=== PATIENT | female | born 1960 | race Caucasian/White ===

== ENCOUNTER 2019-01-13 06:55 | Observation (INO) | payer OTHER ==
--- OUTSIDE RECORDS SUMMARY | 2019-01-13 06:57 | XMS REPORT ---
:1960 Author Organization eClinicalWorks Care Team Providers Name Role Phone DumontMac Provider Role Unavailable Allergies No Known Allergies Problems Problem Type Condition Code Onset Dates Condition Status Problem HTN, goal below 140/90 I10 Active Problem Abnormal mammogram R92.8 Active Problem Family history of diabetes mellitus Z83.3 Active Problem Hyperlipidemia E78.5 Active Problem Primary osteoarthritis of one knee M17.10 Active Problem Body mass index (BMI) of 30.0 to E66.9 Active 39.9 Problem Anxiety disorder F41.9 Active Problem Pre-diabetes R73.09 Active Medications Medication Code Code Instructions Start End Status Dosage System Date Date Zovirax [facility] 45777526614 5 % Externally December 03, 1 application Five times a day 2019 to affected area Results No Known Results Summary Purpose eClinicalWorks Submission
--- OUTSIDE RECORDS SUMMARY | 2019-01-13 06:57 | XMS REPORT ---
:1960 Author Organization eClinicalWorks Care Team Providers Name Role Phone Tim Mac Provider Role Unavailable Allergies No Known Allergies Problems Problem Type Condition Code Onset Dates Condition Status Assessment Hyperlipidemia E78.5 Active Problem HTN, goal below 140/90 I10 Active Assessment HTN, goal below 140/90 I10 Active Problem Abnormal mammogram R92.8 Active Problem Family history of diabetes mellitus Z83.3 Active Problem Hyperlipidemia E78.5 Active Problem Primary osteoarthritis of one knee M17.10 Active Problem Body mass index (BMI) of 30.0 to E66.9 Active 39.9 Problem Anxiety disorder F41.9 Active Problem Pre-diabetes R73.09 Active Assessment Abnormal mammogram R92.8 Active Assessment Primary osteoarthritis of one knee M17.10 Active Assessment Anxiety disorder F41.9 Active Assessment Pre-diabetes R73.09 Active Medications Medication Code Code Instructions Start End Date Status Dosage System Date Losartan [facility] 59443297968 50-12.5 MG Active 1 tablet Potassium-HCTZ Orally Once a day Aspirin [facility] 91091656975 81 MG Orally Active 1 tablet Once a day Results No Known Results Summary Purpose eClinicalWorks Submission
--- OUTSIDE RECORDS SUMMARY | 2019-01-13 06:57 | XMS REPORT ---
[...] Start End Status Dosage System Date Date Valtrex [facility] 89274185830 1 GM Orally December 03, December 04, Active 2 tablet twice a day 2018 2018 Zovirax [facility] 31626626235 5 % Externally December 03, Inactive 1 application Five times a 2019 to affected day area Results No Known Results Summary Purpose eClinicalWorks Submission
--- OUTSIDE RECORDS SUMMARY | 2019-01-13 06:57 | XMS REPORT ---
:1960 Author Organization eClinicalWorks Care Team Providers Name Role Phone Mac Dumont Provider Role Unavailable Allergies, Adverse Reactions, Alerts Substance Reaction Event Type N.K.D.A. Info Not Available Non Drug Allergy Problems Problem Type Condition Code Onset Dates Condition Status Assessment HTN, goal below 140/90 I10 Active Problem HTN, goal below 140/90 I10 Active Problem Abnormal mammogram R92.8 Active Problem Family history of diabetes mellitus Z83.3 Active Problem Hyperlipidemia E78.5 Active Problem Primary osteoarthritis of one knee M17.10 Active Problem Body mass index (BMI) of 30.0 to E66.9 Active 39.9 Problem Anxiety disorder F41.9 Active Problem Pre-diabetes R73.09 Active Assessment Primary osteoarthritis of one knee M17.10 Active Assessment Anxiety disorder F41.9 Active Assessment Pre-diabetes R73.09 Active Assessment Abnormal mammogram R92.8 Active Assessment Hyperlipidemia E78.5 Active Medications Medication Code Code Instructions Start End Date Status Dosage System Date Losartan [facility] 99745636862 50-12.5 MG Active 1 tablet Potassium-HCTZ Orally Once a day Aspirin [facility] 77494175771 81 MG Orally Active 1 tablet Once a day Losartan [facility] 40682376137 50-12.5 MG Active 1 tablet Potassium-HCTZ Orally Once a day Results No Known Results Summary Purpose eClinicalWorks Submission
[2019-01-13 07:31] LABS: Protime INR 0.88
[2019-01-13] MEDS ORDERED: ASPIRIN 81 MG CHEWABLE TABLET ONE (07:31)
[2019-01-13 07:35] LABS: Absolute Lymphocytes (CBC) 1.9 K/uL (0.7-4.9); Eosinophils % 2.1 % (0-4.4); Lymphocytes % 27.6 % (15.3-44.8); MPV 8.5 fL (7.6-11.3); Monocytes % 7.3 % (3.3-12.3); RBC Red Blood Cell Count 4.73 M/uL (3.86-4.86)
[2019-01-13] MEDS ORDERED: ONDANSETRON 4 MG/2 ML VIAL ONE (07:44)
[2019-01-13] MEDS ORDERED: FAMOTIDINE 20 MG/2 ML VIAL IV ONE (07:44)
[2019-01-13] MEDS ORDERED: NA CHLORIDE 0.9% 500 ML ONE (07:44)
[2019-01-13] MEDS ORDERED: NITROGLYCERIN 0.4 MG/TAB SL ONE (07:44)
--- NOTE | 2019-01-13 08:16 | RAD REPORT ---
EXAM DESCRIPTION: RAD - Chest Single View - 01/13/2019 8:03 am CLINICAL HISTORY: Chest pain COMPARISON: None. TECHNIQUE: AP portable chest image was obtained 0758 hours . FINDINGS: Lungs are clear. Heart and vasculature are normal. No measurable pleural effusion and no p neumothorax. No acute bony abnormality seen. No acute aortic findings suspected. IMPRESSION: No acute cardiopulmonary process.
[2019-01-13] MEDS ORDERED: METOPROLOL TAR 25 MG TAB ONE (08:25)
[2019-01-13 08:45] LABS: ALT/SGPT 17 U/L (12-78); AST/SGOT 11 U/L (15-37); Albumin 3.6 g/dL (3.4-5.0); Alkaline Phosphatase 68 U/L (45-117); BUN Blood Urea Nitrogen 17 mg/dL (7-18); Bicarbonate 29 mmol/L (21-32); Bilirubin Direct < 0.1 mg/dL (0-0.2); Bilirubin Total 0.3 mg/dL (0.2-1.0); Glucose Level 109 mg/dL (74-106); Magnesium 2.3 mg/dL (1.8-2.4); NT PRO-BNP 36 pg/mL (<125); Potassium 4.3 mmol/L (3.5-5.1); Protein, Total 7.1 g/dL (6.4-8.2); Sodium Level 142 mmol/L (136-145); Troponin (Emerg Dept Use Only) < 0.02 ng/mL (0.0-0.045)
--- NOTE | 2019-01-13 10:08 | ER ---
Nurse's Notes [facility] Name: Portia Walton Age: 58 yrs Sex: Female : 1960 Arrival Date: 01/13/2019 Time: 06:58 Bed 20 Private MD: Mac Dumont Diagnosis: Angina pectoris, unspecified Presentation: 01/13 07:11 Presenting complaint: Patient states: I dont know if I am having a heart attack or not, tw2 i have been having some upper back pain and it spread across and its hurts in my jaw on the left side and down my left arm, and i am having some indigestion for a few days now. Transition of care: patient was not received from another setting of care. Onset of symptoms was January 13, 2019. Risk Assessment: Do you want to hurt yourself or someone else? Patient reports no desire to harm self or others. Initial Sepsis Screen: Does the patient meet any 2 criteria? No. Patient's initial sepsis screen is negative. Does the patient have a suspected source of infection? No. Patient's initial sepsis screen is negative. Care prior to arrival: None. 07:11 Method Of Arrival: Wheelchair tw2 07:11 Acuity: CORIN 2 tw2 Triage Assessment: 07:12 General: Appears in no apparent distress. well groomed, Behavior is calm, cooperative, tw2 appropriate for age. Pain: Complains of pain in back and chest Pain radiates to left arm and jaw. Cardiovascular: Reports indigestion. Historical: - Allergies: 07:10 No Known Allergies; tw2 - Home Meds: 07:10 losartan oral oral [Active]; tw2 - PMHx: 07:10 Hypertension; tw2 - PSHx: 07:10 Knee surgery; tw2 - Immunization history:: Adult Immunizations. - Social history:: Smoking status: . - Ebola Screening: : Patient denies travel to an Ebola-affected area in the 21 days before illness onset. Screenin:04 Abuse screen: Denies threats or abuse. Nutritional screening: No deficits noted. tw2 Tuberculosis screening: No symptoms or risk factors identified. Fall Risk None identified. Assessment: 07:14 Pain: Pain began 2-3 days ago. tw2 07:25 General: Appears in no apparent distress. obese, well groomed, Behavior is calm, tw2 cooperative, appropriate for age. Pain: Complains of pain in back. Neuro: Level of Consciousness is awake, alert, obeys commands, Oriented to person, place, time, situation. Cardiovascular: Heart tones S1 S2 Patient's skin is warm and dry. Respiratory: Airway is patent Respiratory effort is even, unlabored, Respiratory pattern is regular, symmetrical, Breath sounds are clear bilaterally. GI: Abdomen is round non-distended, obese, Bowel sounds present X 4 quads. Reports indigestion. : No signs and/or symptoms were reported regarding the genitourinary system. EENT: No signs and/or symptoms were reported regarding the EENT system. Derm: No signs and/or symptoms reported regarding the dermatologic system. Musculoskeletal: Range of motion: intact in all extremities, Reports pain in left arm. 08:15 Reassessment: Patient appears in no apparent distress at this time. Patient and/or tw2 family updated on plan of care and expected duration. Pain level reassessed. Patient is alert, oriented x 3, equal unlabored respirations, skin warm/dry/pink. Patient states feeling better. Patient states symptoms have improved. 09:03 Reassessment: Patient appears in no apparent distress at this time. Patient and/or tw2 family updated on plan of care and expected duration. Pain level reassessed. Patient is alert, oriented x 3, equal unlabored respirations, skin warm/dry/pink. 09:53 Reassessment: Dr. Dumont, Hospitalist at bedside at this time. tw2 10:20 Reassessment: Patient appears in no apparent distress at this time. Patient and/or tw2 family updated on plan of care and expected duration. Pain level reassessed. Patient is alert, oriented x 3, equal unlabored respirations, skin warm/dry/pink. Vital Signs: 07:14 BP 188 / 89; Pulse 72; Resp 19; Temp 97.9(O); Pulse Ox 100% on R/A; Weight 95.25 kg tw2 (R); Height 5 ft. 5 in. (165.10 cm); Pain 3/10; 08:15 BP 181 / 86; Pulse 60; Resp 17; Pulse Ox 100% on R/A; tw2 09:02 BP 163 / 91; Pulse 63; Resp 14; Pulse Ox 100% on R/A; tw2 10:19 BP 158 / 84 Supine; Pulse 54; Resp 17; Pulse Ox 100% on R/A; tw2 07:14 Body Mass Index 34.95 (95.25 kg, 165.10 cm) tw2 ED Course: 06:58 Patient arrived in ED. am2 06:58 Mac Dumont DO is Private Physician. am2 07:04 Placed in gown. Bed in low position. school lunch monitor on. Pulse ox on. NIBP on. tw2 07:05 Arm band placed on. tw2 07:08 Miki Sunshine PA is PHCP. cp 07:08 Rolando Canales MD is Attending Physician. cp 07:12 Triage completed. tw2 07:15 Patient maintains SpO2 saturation greater than 95% on room air. tw2 07:17 EKG done, by ED staff, reviewed by Miki LANDA. mh5 07:18 Warm blanket given. mh5 07:20 Initial lab(s) drawn, by mi, sent to lab. Inserted saline lock: 20 gauge in left hand, ls4 using aseptic technique. Blood collected. 07:26 Fiordaliza Siddiqi, RN is Primary Nurse. tw2 07:42 Jitendra Hays MD is Attending Physician. cp 08:01 X-ray completed. Portable x-ray completed in exam room. Patient tolerated procedure jb2 well. 08:06 XRAY Chest (1 view) In Process Unspecified. EDMS 10:07 Mac Dumont DO is Hospitalizing Provider. cp 11:01 Awaiting: unsuccessful attempt to call report to floor nurse at this time. tw2 11:20 No provider procedures requiring assistance completed. Patient admitted, IV remains in tw2 place. Administered Medications: 07:26 Drug: Aspirin Chewable Tablet 324 mg Route: PO; tw2 07:38 Follow up: Response: No adverse reaction tw2 07:32 Drug: Nitroglycerin 0.4 mg Route: Sublingual; tw2 07:50 Follow up: Response: No adverse reaction; Marked relief of symptoms; Pain is decreased tw2 07:34 Drug: Pepcid 20 mg Route: IVP; Site: left hand; tw2 08:56 Follow up: Response: No adverse reaction tw2 07:37 Drug: NS 0.9% 500 ml Route: IV; Rate: bolus; Site: left hand; tw2 08:55 Follow up: Response: No adverse reaction; IV Status: Completed infusion; IV Intake: tw2 500ml 07:38 Drug: Zofran 4 mg Route: IVP; Site: left hand; tw2 08:55 Follow up: Response: No adverse reaction tw2 08:14 Drug: Metoprolol 25 mg Route: PO; tw2 10:41 Follow up: Response: No adverse reaction; Blood pressure is lowered tw2 Intake: 08:55 IV: 500ml; Total: 500ml. tw2 Outcome: 10:08 Decision to Hospitalize by Provider. cp 11:21 Admitted to Med/surg accompanied by tech, via wheelchair, room 427, with chart, Report tw2 called to SIMRAN Campos 11:21 Condition: stable 11:21 Instructed on the need for admit. 11:30 Patient left the ED. tw2 Signatures: Dispatcher [employer] Mario Lucas2 Miki Sunshine PA PA cp Wise, Tara RN RN tw2 Venessa Robison [facility] Sanaz Monzon 2 Shamika Chun, RN RN ls4
--- NOTE | 2019-01-13 10:09 | EDPHYS ---
Physician Documentation [facility] Name: Portia Walton Age: 58 yrs Sex: Female : 1960 Arrival Date: 01/13/2019 Time: 06:58 Bed 20 Private MD: Tim [facility] ED Physician Jitendra Hays HPI: 01/13 07:15 This 58 yrs old Female presents to ER via Wheelchair with complaints of Chest cp Tightness, Back Pain, indigestion. 07:15 The patient or guardian reports chest pain that is located primarily in the anterior cp chest wall, left. 07:15 Onset: this morning. The pain radiates to the left arm, left neck, left jaw. cp 07:15 The chest pain is described as tightness. cp 07:15 Associated signs and symptoms: Pertinent negatives: abdominal pain, cough, diaphoresis, cp lower extremity pain, lower extremity swelling, shortness of breath, syncope, vomiting. Duration: The patient or guardian reports a single episode, that is still ongoing. Severity of pain: in the emergency department the pain is unchanged despite home interventions. Historical: - Allergies: 07:10 No Known Allergies; tw2 - Home Meds: 07:10 losartan oral oral [Active]; tw2 - PMHx: 07:10 Hypertension; tw2 - PSHx: 07:10 Knee surgery; tw2 - Immunization history:: Adult Immunizations. - Social history:: Smoking status: . - Ebola Screening: : Patient denies travel to an Ebola-affected area in the 21 days before illness onset. ROS: 07:20 Constitutional: Negative for body aches, chills, fever, poor PO intake. cp 07:20 Eyes: Negative for injury, pain, redness, and discharge. cp 07:20 ENT: Negative for drainage from ear(s), ear pain, sore throat, difficulty swallowing, difficulty handling secretions. 07:20 Cardiovascular: Positive for chest pain, Negative for edema, palpitations. 07:20 Respiratory: Negative for cough, shortness of breath, wheezing. 07:20 Abdomen/GI: Negative for abdominal pain, vomiting, diarrhea, constipation. 07:20 Back: Positive for pain at rest. 07:20 : Negative for urinary symptoms. 07:20 Neuro: Negative for altered mental status, headache, weakness. 07:20 All other systems are negative. Exam: 07:12 ECG was reviewed by the Attending Physician. cp 07:22 Constitutional: The patient appears in no acute distress, alert, awake, cp non-diaphoretic, non-toxic, well developed, well nourished. 07:22 Head/Face: Normocephalic, atraumatic. Eyes: Pupils equal round and reactive to light, cp extra-ocular motions intact. Lids and lashes normal. Conjunctiva and sclera are non-icteric and not injected. Cornea within normal limits. Periorbital areas with no swelling, redness, or edema. ENT: Nares patent. No nasal discharge, no septal abnormalities noted. Tympanic membranes are normal and external auditory canals are clear. Oropharynx with no redness, swelling, or masses, exudates, or evidence of obstruction, uvula midline. Mucous membranes moist. 07:22 Neck: ROM/movement: is normal, is supple, without pain, no range of motions limitations, no nuchal rigidity, Lymph nodes: no appreciated lymphadenopathy. 07:22 Chest/axilla: Inspection: normal, Palpation: is normal, no crepitus, no tenderness. 07:22 Cardiovascular: Rate: normal, Rhythm: regular, Heart sounds: murmur, not appreciated, rub, not appreciated, gallop, not appreciated, Edema: is not appreciated, JVD: is not appreciated. 07:22 Respiratory: the patient does not display signs of respiratory distress, Respirations: normal, no use of accessory muscles, no retractions, no splinting, no tachypnea, labored breathing, is not present, Breath sounds: are clear throughout, no decreased breath sounds. 07:22 Abdomen/GI: Inspection: abdomen appears normal, Bowel sounds: active, all quadrants, Palpation: abdomen is soft and non-tender, in all quadrants, rebound tenderness, is not appreciated, involuntary guarding, is not appreciated. 07:22 Back: pain, is absent, ROM is normal. 07:22 Skin: no rash present. 07:22 Neuro: Orientation: to person, place \T\ time. Mentation: is normal, Cerebellar function: is grossly normal, Motor: moves all fours, strength is normal, Sensation: no obvious gross deficits. Vital Signs: 07:14 BP 188 / 89; Pulse 72; Resp 19; Temp 97.9(O); Pulse Ox 100% on R/A; Weight 95.25 kg tw2 (R); Height 5 ft. 5 in. (165.10 cm); Pain 3/10; 08:15 BP 181 / 86; Pulse 60; Resp 17; Pulse Ox 100% on R/A; tw2 09:02 BP 163 / 91; Pulse 63; Resp 14; Pulse Ox 100% on R/A; tw2 10:19 BP 158 / 84 Supine; Pulse 54; Resp 17; Pulse Ox 100% on R/A; tw2 07:14 Body Mass Index 34.95 (95.25 kg, 165.10 cm) tw2 MDM: 07:11 Patient medically screened. cp 09:15 The patient was given aspirin in the Emergency Department. cp 09:15 Test interpretation: by ED physician or midlevel provider: ECG, plain radiologic cp studies. 09:17 Data reviewed: vital signs, nurses notes, lab test result(s), EKG, radiologic studies, cp plain films, I have discussed the patient's presentation/case with the attending Emergency Department Physician;. Response to treatment: the patient's symptoms have resolved after treatment, chest pain relieved with ASA and sublingual nitro. 09:34 Physician consultation: Mac Tmi was called at 09:20, was contacted at 09:25, regarding admission, to the telemetry unit. patient's condition, and will see patient in ED, shortly. 09:41 HEART Score: History: Highly Suspicious (2), Age: > 45 and < 65 years (1), Risk kdr Factors: 1 or 2 risk factors (1). 01/13 07:08 Order name: Basic Metabolic Panel tw2 01/13 07:08 Order name: CBC with Diff tw01/13 07:08 Order name: LFT's 01/13 07:08 Order name: Magnesium; Complete Time: 09:14 tw2 01/13 07:08 Order name: NT PRO-BNP; Complete Time: 09:14 tw2 01/13 07:08 Order name: PT-INR; Complete Time: 08:26 tw2 01/13 07:08 Order name: Troponin (emerg Dept Use Only); Complete Time: 09:14 tw2 01/13 09:13 Interpretation: TROPED < 0.02; Reviewed. cp 01/13 07:11 Order name: Basic Metabolic Panel; Complete Time: 09:14 EDMS 01/13 09:12 Interpretation: Normal except: CL 108; GLUC 109; GFR 73. cp 01/13 07:11 Order name: CBC with Automated Diff; Complete Time: 08:26 EDMS 01/13 07:11 Order name: Liver (Hepatic) Function; Complete Time: 09:14 EDMS 01/13 07:11 Order name: Lipase; Complete Time: 09:14 cp 01/13 10:10 Order name: Troponin I EDIA 01/13 10:10 Order name: Troponin I EDMS 01/13 10:10 Order name: Troponin I EDMS 01/13 07:08 Order name: XRAY Chest (1 view); Complete Time: 08:26 tw2 01/13 07:08 Order name: EKG; Complete Time: 07:12 tw2 01/13 07:08 Order name: Cardiac monitoring; Complete Time: 07:15 tw2 01/13 07:08 Order name: EKG - Nurse/Tech; Complete Time: 07:15 tw2 01/13 07:08 Order name: IV Saline Lock; Complete Time: 07:15 tw2 01/13 07:08 Order name: Labs collected and sent; Complete Time: 07:15 tw2 01/13 07:08 Order name: O2 Per Protocol; Complete Time: 07:15 tw2 01/13 10:10 Order name: Heart Healthy EDIA 01/13 10:10 Order name: Echo with Doppler EDIA 01/13 10:11 Order name: Troponin I EDIA 01/13 07:08 Order name: O2 Sat Monitoring; Complete Time: 07:16 tw2 01/13 07:38 Order name: Labs - recollect needed; Complete Time: 08:16 bd EC:12 Rate is 71 beats/min. Rhythm is regular. IN interval is normal. QRS interval is normal. cp QT interval is normal. Interpreted by me. Reviewed by me. Administered Medications: 07:26 Drug: Aspirin Chewable Tablet 324 mg Route: PO; tw2 07:38 Follow up: Response: No adverse reaction tw2 07:32 Drug: Nitroglycerin 0.4 mg Route: Sublingual; tw2 07:50 Follow up: Response: No adverse reaction; Marked relief of symptoms; Pain is decreased tw2 07:34 Drug: Pepcid 20 mg Route: IVP; Site: left hand; tw2 08:56 Follow up: Response: No adverse reaction tw2 07:37 Drug: NS 0.9% 500 ml Route: IV; Rate: bolus; Site: left hand; tw2 08:55 Follow up: Response: No adverse reaction; IV Status: Completed infusion; IV Intake: tw2 500ml 07:38 Drug: Zofran 4 mg Route: IVP; Site: left hand; tw2 08:55 Follow up: Response: No adverse reaction tw2 08:14 Drug: Metoprolol 25 mg Route: PO; tw2 10:41 Follow up: Response: No adverse reaction; Blood pressure is lowered tw2 Disposition: 14:35 Co-signature as Attending Physician, Jitendra Hays MD I agree with the assessment and kdr plan of care. Disposition: 01/13/19 10:08 Hospitalization ordered by Mac Dumont for Observation. Preliminary diagnosis is Angina pectoris, unspecified. - Bed requested for Telemetry/MedSurg (observation). - Status is Observation. tw2 - Condition is Stable. - Problem is new. - Symptoms have improved. UTI on Admission? No Signatures: Dispatcher [employer] EDMS Taty Torres Kevin, MD MD kdr Miki Sunshine PA PA cp Wise, Tara, RN RN tw2 Corrections: (The following items were deleted from the chart) 09:15 09:13 Normal except: TROPED < 0.02. cp cp 10:54 10:08 Hospitalization Ordered by Mac Tim GUTIERREZ for Observation. Preliminary diagnosis bd is Angina pectoris, unspecified. Bed requested for Telemetry/MedSurg (observation). Status is Observation. Condition is Stable. Problem is new. Symptoms have improved. UTI on Admission? No. cp 11:30 10:54 01/13/2019 10:08 Hospitalization Ordered by [facility] Tim GUTIERREZ for Observation. tw2 Preliminary diagnosis is Angina pectoris, unspecified. Bed requested for Telemetry/MedSurg (observation). Status is Observation. Condition is Stable. Problem is new. Symptoms have improved. UTI on Admission? No. bd
--- NOTE | 2019-01-13 11:14 | P.HP ---
Certification for Inpatient Patient admitted to: Observation With expected LOS: <2 Midnights Patient will require the following post-hospital care: None Practitioner: I am a practitioner with admitting privileges, knowledge of patient current condition, hospital course, and medical plan of care. Services: Services provided to patient in accordance with Admission requirements found in Title 42 Section 412.3 of the Code of Federal Regulations Patient History Date of Service: 01/13/19 Primary Care Provider: Dr. Dumont Reason for admission: Shoulder pain History of Present Illness: This is a 58-year-old female with significant past medical history of high blood pressure who presented to the ED complaining of having some shoulder plain this started about Saturday night. Patient stated that she had some shoulder blade pain that was not relieved by any painkillers at home. Patient has noted that this morning however at around 5:00 a.m. she started having heartburn like symptoms. She also noted that the Medrol was getting tight and the she decided to come to the ER. Patient denies having any chills any dyspnea or any chest pain at this time. Patient stated that the symptoms along like heartburn and chest tightness. Patient stated that it was more of a burning feeling rather than pressure-like feeling. Patient however got worried and thus decided to come to the ER. Patient has taken Prilosec in the past about 2 months ago as well for similar symptoms. The patient was given nitro and aspirin in the ER which did resolve her pain. Patient was chest pain free when I saw the patient in the ER Patient was seen and examined in the ER. Initial troponin were negative. EKG was with no acute changes. Patient's heart score was calculated to be 3 to 4+ decision was made to observe the patient in the hospital for repeat troponin. Review of Systems 10-point ROS is otherwise unremarkable Physical Examination - Physical Exam General: Alert, In no apparent distress HEENT: Atraumatic, PERRLA, Mucous membr. moist/pink, EOMI, Sclerae nonicteric Neck: Supple, 2+ carotid pulse no bruit, No LAD, Without JVD or thyroid abnormality Respiratory: Clear to auscultation bilaterally, Normal air movement Cardiovascular: Regular rate/rhythm, Normal S1 S2 Gastrointestinal: Normal bowel sounds, No tenderness Musculoskeletal: No tenderness Integumentary: No rashes Neurological: Normal gait, Normal speech, Normal strength at 5/5 x4 extr, Normal tone, Normal affect Lymphatics: No axilla or inguinal lymphadenopathy - Studies Laboratory Data (last 24 hrs) 01/13/19 08:10: Lipase 97 01/13/19 08:10: Sodium 142, Potassium 4.3, BUN 17, Creatinine 0.80, Glucose 109 H, Magnesium 2.3, Total Bilirubin 0.3, AST 11 L, ALT 17, Alkaline Phosphatase 68 01/13/19 07:18: PT 10.4, INR 0.88 01/13/19 07:18: WBC 6.9, Hgb 13.2, Hct 40.0, Plt Count 382 Assessment and Plan - Problems (Diagnosis) (1) Chest tightness Current Visit: Yes Status: Acute Plan: Chest tightness with radiation to the jaw and back with a heart score of 4 -patient admitted to the hospital to rule out ACS -will repeat troponin times 1 here in the hospital in 8 hr -if the troponin is negative patient and can be discharged home to follow up outpatient with cardiology to have further workup -will monitor patient closely here in the hospital and started on metoprolol 25 mg b.i.d. -patient initial blood pressure was elevated in the ER as she had not taken her home medication today (2) HTN (hypertension) Current Visit: Yes Status: Chronic Plan: Restarted on home medication along with metoprolol Qualifiers: Hypertension type: essential hypertension Qualified Code(s): I10 - Essential (primary) hypertension - Plan Admit the patient for observation to repeat troponin x1 here in the hospital. If the troponin is negative and patient remains chest pain-free patient then can be discharged home to have outpatient follow up with cardiology for further workup. Discharge Plan: Home Plan to discharge in: 24 Hours - Advance Directives Does patient have a Living Will: No Does patient have a Durable POA for Healthcare: No - Code Status/Comfort Care Code Status Assessed: Yes Critical Care: No
[2019-01-13 11:48] VITALS: O2SAT 100
--- NOTE | 2019-01-13 12:11 | EKG ---
Test Date: 2019-01-13 Test Time: 07:12:11 [place]: [facility] MEASUREMENT RESULTS: Intervals: Rate: 71 CA: 172 QRSD: 80 QT: 398 QTc: 432 [place]: P: 30 CA: 172 QRS: 9 T: 55 INTERPRETIVE STATEMENTS: Normal sinus rhythm Septal infarct, age undetermined Abnormal ECG No previous ECG available for comparison Electronically Signed On 01-13-19 12:10:15 CDT by Carlos Hudson
[2019-01-13 12:17] VITALS: TEMP 98.7
--- NOTE | 2019-01-13 13:35 | ECHO ---
HEIGHT: 5 ft 5 in WEIGHT: 213 lb 9.6 oz DATE OF STUDY: 01/13/[address]: Irma Dumont MD 2-DIMENSIONAL: YES M.MODE: YES DOPPLER: YES COLOR FLOW: YES TDS: NO PORTABLE: NO DEFINITY: NO BUBBLE STUDY: NO DIAGNOSIS: CHEST TIGHTNESS CARDIAC HISTORY: CATHERIZATION: NO SURGERY: NO PROSTHETIC VALVE: NO PACEMAKER: NO MEASUREMENTS (cm) DIASTOLIC (NORMALS) SYSTOLIC (NORMALS) IVSd 1.0 (0.6-1.2) LA Diam 3.8 (1.9-4.0) LVEF 71% LVIDd 4.2 (3.5-5.7) LVIDs 2.5 (2.0-3.5) %FS 40% LVPWd 1.1 (0.6-1.2) Ao Diam 2.7 (2.0-3.7) 2 DIMENSIONAL ASSESSMENT: RIGHT ATRIUM: NORMAL LEFT ATRIUM: NORMAL RIGHT VENTRICLE: NORMAL LEFT VENTRICLE: NORMAL TRICUSPID VALVE: NORMAL MITRAL VALVE: NORMAL PULMONIC VALVE: NORMAL AORTIC VALVE: NORMAL PERICARDIAL EFFUSION: NONE AORTIC ROOT: NORMAL LEFT VENTRICULAR WALL MOTION: NORMAL DOPPLER/COLOR FLOW: MILD TRICUSPID REGURGITATION. NORMAL RIGHT VENTRICULAR SYSTOLIC PRESSURE. COMMENTS: NORMAL 2D ECHOCARDIOGRAM. MILD TRICUSPID REGURGITATION. NORMAL RIGHT VENTRICULAR SYSTOLIC PRESSURE. NO EFFUSION. NO WALL MOTION ABNORMALITY. TECHNOLOGIST: Dinah ROSALES
[2019-01-13 14:03] VITALS: BMI 35.4
[2019-01-13 17:03] VITALS: BP 147/79
== END 2019-01-13 15:42 | disposition home or self-care (01) ==
LOC: ER 06:55 → ERHOLD 10:09 → 4TH 11:18
PROVIDERS: ADMIT Family Medicine; ATTEND Family Medicine
DX: R07.89 Other chest pain (principal); I10 Essential (primary) hypertension
CPT/HCPCS: 36415; 71045; 80048; 80076; 83690; 83735; 83880; 84484; 85025; 85610; 93005; 93306; 96361; 96374; 96375; 99285; G0378; J2405

== ENCOUNTER 2019-03-31 09:20 | Inpatient (IN) | payer OTHER ==
[2019-03-31 10:05] LABS: Absolute Lymphocytes (CBC) 1.5 K/uL (0.7-4.9); Basophils % 0.7 % (0-1.3); Hematocrit 17.1 % (36.0-45.0); Lymphocytes % 21.5 % (15.3-44.8); MPV 7.6 fL (7.6-11.3); RBC Red Blood Cell Count 1.97 M/uL (3.86-4.86)
[2019-03-31 10:10] LABS: Protime INR 0.96
--- NOTE | 2019-03-31 10:33 | RAD REPORT ---
EXAM DESCRIPTION: RAD - Chest Single View - 03/31/2019 10:17 am CLINICAL HISTORY: Shortness of breath COMPARISON: December 2018 TECHNIQUE: AP portable chest image was obtained 1005 hours . FINDINGS: Lungs are clear of acute finding. Small granuloma in the upper right lung field. Lung delmis ings match comparison. . Heart and vasculature are normal. No measurable pleural effusion and no pneu mothorax. No acute bony abnormality seen. No acute aortic findings suspected. IMPRESSION: No acute cardiopulmonary process. No significant interval change.
[2019-03-31 10:40] LABS: ALT/SGPT 22 U/L (12-78); AST/SGOT 18 U/L (15-37); Albumin 3.3 g/dL (3.4-5.0); Alkaline Phosphatase 54 U/L (45-117); BUN Blood Urea Nitrogen 16 mg/dL (7-18); Bicarbonate 28 mmol/L (21-32); Bilirubin Direct < 0.1 mg/dL (0-0.2); Bilirubin Total 0.3 mg/dL (0.2-1.0); Glucose Level 101 mg/dL (74-106); Magnesium 2.2 mg/dL (1.8-2.4); NT PRO-BNP 371 pg/mL (<125); Potassium 3.5 mmol/L (3.5-5.1); Protein, Total 6.5 g/dL (6.4-8.2); Sodium Level 142 mmol/L (136-145); Troponin (Emerg Dept Use Only) 0.26 ng/mL (0.0-0.045)
[2019-03-31] MEDS ORDERED: FAMOTIDINE 20 MG/2 ML VIAL IV ONE (10:40)
[2019-03-31] MEDS ORDERED: NA CHLORIDE 0.9% 250 ML ONE ×2 (10:40→14:27)
[2019-03-31] MEDS ORDERED: PANTOPRAZOLE 40 MG INJ ONE (10:40)
--- NOTE | 2019-03-31 10:41 | ER ---
Nurse's Notes [facility] Name: Portia Walton Age: 59 yrs Sex: Female : 1960 Arrival Date: 03/31/2019 Time: 09:22 Bed 20 Private MD: Mac Dumont Diagnosis: Dizziness and giddiness;Anemia, unspecified;Weakness;Cholelithiasis Presentation: 03/31 09:29 Presenting complaint: Dizziness, exertional SOB, and nausea x 1 week, blurred vision hb this morning. Transition of care: patient was not received from another setting of care. Onset of symptoms was March 25, 2019. Risk Assessment: Do you want to hurt yourself or someone else? Patient reports no desire to harm self or others. Initial Sepsis Screen: Does the patient meet any 2 criteria? No. Patient's initial sepsis screen is negative. Does the patient have a suspected source of infection? No. Patient's initial sepsis screen is negative. Care prior to arrival: None. 09:29 Method Of Arrival: Ambulatory hb 09:29 Acuity: CORIN 3 hb Triage Assessment: 15:03 Headache History: The patient has had previous headaches. General: Appears in no mg2 apparent distress. comfortable, Behavior is calm, cooperative. Pain: Denies pain. 15:13 Pain: Pain currently is 0 out of 10 on a pain scale. Pain began Also complains of no mg2 other associated symptoms. Historical: - Allergies: 09:32 No Known Allergies; hb - Home Meds: 09:32 losartan Oral [Active]; Hydrochlorothiazide Oral [Active]; hb - PMHx: 09:32 Hypertension; Anemia; hb - PSHx: 09:32 Knee - Right; hb - Immunization history:: Adult Immunizations up to date. - Social history:: Smoking status: Patient/guardian denies using tobacco. - Ebola Screening: : No symptoms or risks identified at this time. Screenin:40 Abuse screen: Denies threats or abuse. Denies injuries from another. Nutritional sg screening: No deficits noted. Tuberculosis screening: No symptoms or risk factors identified. Never had TB. Fall Risk None identified. Assessment: 09:40 General: Appears in no apparent distress. comfortable, well groomed, well developed, sg well nourished, Behavior is calm, cooperative, appropriate for age. Pain: Denies pain. Neuro: Level of Consciousness is awake, alert, obeys commands, Oriented to person, place, time, situation, Medical Esthetician are equal bilaterally Moves all extremities. Full function Gait is steady, Speech is normal, Facial symmetry appears normal, Pupils are PERRLA, Reports blurred vision dizziness. Cardiovascular: Capillary refill is brisk in bilateral fingers Patient's skin is warm and dry. Chest pain is denied. Respiratory: Airway is patent Respiratory effort is even, unlabored, Respiratory pattern is regular, symmetrical. GI: Abdomen is round non-distended. : No signs and/or symptoms were reported regarding the genitourinary system. EENT: No signs and/or symptoms were reported regarding the EENT system. Derm: Skin is intact, is healthy with good turgor, Skin is dry, Skin is pale, Skin temperature is cool. Musculoskeletal: Circulation, motion, and sensation intact. Range of motion: intact in all extremities, Swelling absent. 10:55 Reassessment: Patient appears in no apparent distress at this time. Patient and/or sg family updated on plan of care and expected duration. Pain level reassessed. Patient is alert, oriented x 3, equal unlabored respirations, skin warm/dry/pink. 11:32 Reassessment: pt remains off the unit in radiology at this time. pt family remains in sg exam room 20. 12:48 Reassessment: dr concepcion -hospitalist came and assessed the patient and advised to be mg2 admitted to ICU. 15:25 Reassessment: lunch served to the patient. bt ongoing. no complaints noted. mg2 15:26 Reassessment: phoned ICU to give the report but nurse is still busy moving her patient mg2 to another floor. Vital Signs: 09:31 BP 130 / 74; Pulse 99; Resp 16; Temp 98.3; Pulse Ox 100% on R/A; Weight 95.25 kg; hb Height 5 ft. 5 in. (165.10 cm); Pain 0/10; 12:15 BP 132 / 46; Pulse 79; Resp 18; Temp 98.2; Pulse Ox 100% on R/A; Pain 0/10; mg2 13:14 BP 111 / 58; Pulse 77; Resp 18; Temp 98; Pulse Ox 100% on R/A; mg2 14:30 BP 123 / 68; Pulse 77; Resp 18; Temp 98.1; Pulse Ox 100% on R/A; Pain 0/10; mg2 15:12 BP 117 / 49; Pulse 88; Resp 18; Temp 98; Pulse Ox 100% on R/A; Pain 0/10; mg2 15:59 BP 114 / 56; Pulse 75; Resp 18; Temp 98; Pulse Ox 100% on R/A; Pain 0/10; mg2 09:31 Body Mass Index 34.95 (95.25 kg, 165.10 cm) hb ED Course: 09:22 Patient arrived in ED. as 09:23 Mac Dumont DO is Private Physician. as 09:31 Triage completed. hb 09:31 Arm band placed on right wrist. hb 09:35 Miki Iraheta MD is Attending Physician. tiki 09:37 Buzz Davila, TEDDY is Primary Nurse. sg 10:00 Initial lab(s) drawn, by ED staff, sent to lab. Inserted saline lock: 22 gauge in right sg antecubital area, using aseptic technique. Blood collected. IV inserted by Pavan . 10:08 EKG done, by motorsports technician. reviewed by Miki Iraheta MD. tc 10:24 XRAY Chest (1 view) In Process Unspecified. EDMS 10:34 Shayan Concepcion MD is Hospitalizing Provider. tiki 10:56 Notified ED physician of a critical lab result(s). D-Dimer of 551. sg 10:[address] via stretcher. sw 11:43 CT Chest For PE Angio In Process Unspecified. EDMS 12:47 Patient has correct armband on for positive identification. Door closed. Warm blanket mg2 given. 12:47 No provider procedures requiring assistance completed. Patient admitted, IV remains in mg2 place. Administered Medications: 10:40 Drug: Pepcid 20 mg Route: IVP; Site: right antecubital; sg 12:45 Follow up: Response: No adverse reaction mg2 10:42 Drug: ProTONIX 40 mg Route: IVP; Site: right antecubital; sg 12:45 Follow up: Response: No adverse reaction mg2 12:10 Drug: Tylenol 650 mg Route: PO; mg2 14:53 Follow up: Response: No adverse reaction mg2 12:10 Drug: Benadryl 12.5 mg Route: IVP; Site: right antecubital; mg2 14:53 Follow up: Response: No adverse reaction mg2 16:26 Not Given (patient moved to ICU already before BT completion): Lasix 20 mg IVP once; mg2 post trasnfusion of 2 units PRBC Medication: 12:47 Blood products: PRBCs X 1 unit given. mg2 15:14 Blood products: PRBCs X 1 unit given. mg2 Outcome: 10:36 Decision to Hospitalize by Provider. tiki 15:59 Admitted to ICU accompanied by nurse, accompanied by tech, via stretcher, room 2, with mg2 oxygen, on monitor, with chart, Report called to teddy gomez 15:59 Condition: stable 15:59 Instructed on the need for admit, Demonstrated understanding of instructions. 16:26 Patient left the ED. mg2 Signatures: Dispatcher [employer] EDBuzz Maier, RN RN Miki Pollock MD MD cha Martinez, Amelia as Callis, Tiffany, assistant financial accountant EKG Sheree Harrington Heather, RN RN hb Gardose, Michele, RN RN mg2
--- NOTE | 2019-03-31 10:41 | EDPHYS ---
Physician Documentation [facility] Name: Portia Walton Age: 59 yrs Sex: Female : 1960 Arrival Date: 03/31/2019 Time: 09:22 Bed 20 Private MD: [facility] ED Physician Miki Iraheta HPI: 03/31 10:20 This 59 yrs old Female presents to ER via Ambulatory with complaints of tiki Dizziness, Headache, Diarrhea. 10:20 The patient presents with dizziness, feeling faint, generalized weakness. Onset: The tiki symptoms/episode began/occurred 3 day(s) ago. Context: occurred at an unknown location. Modifying factors: The symptoms are alleviated by nothing, the symptoms are aggravated by standing up, changing position. Historical: - Allergies: 09:32 No Known Allergies; hb - Home Meds: 09:32 losartan Oral [Active]; Hydrochlorothiazide Oral [Active]; hb - PMHx: 09:32 Hypertension; Anemia; hb - PSHx: 09:32 Knee - Right; hb - Immunization history:: Adult Immunizations up to date. - Social history:: Smoking status: Patient/guardian denies using tobacco. - Ebola Screening: : No symptoms or risks identified at this time. ROS: 10:21 Constitutional: Negative for fever, chills, and weight loss, Eyes: Negative for injury, tiki pain, redness, and discharge, ENT: Negative for injury, pain, and discharge, Neck: Negative for injury, pain, and swelling, Cardiovascular: Negative for chest pain, palpitations, and edema, Respiratory: Negative for shortness of breath, cough, wheezing, and pleuritic chest pain, Back: Negative for injury and pain, : Negative for injury, bleeding, discharge, and swelling, MS/Extremity: Negative for injury and deformity, Skin: Negative for injury, rash, and discoloration, Psych: Negative for depression, anxiety, suicide ideation, homicidal ideation, and hallucinations, Allergy/Immunology: Negative for hives, rash, and allergies, Endocrine: Negative for neck swelling, polydipsia, polyuria, polyphagia, and marked weight changes, Hematologic/Lymphatic: Negative for swollen nodes, abnormal bleeding, and unusual bruising. 10:21 Abdomen/GI: Positive for nausea and vomiting, diarrhea. 10:21 Skin: Positive for pallor. 10:21 Neuro: Positive for dizziness, weakness. Exam: 10:21 Constitutional: This is a well developed, well nourished patient who is awake, alert, tiki and in no acute distress. Head/Face: Normocephalic, atraumatic. Eyes: Pupils equal round and reactive to light, extra-ocular motions intact. Lids and lashes normal. Conjunctiva and sclera are non-icteric and not injected. Cornea within normal limits. Periorbital areas with no swelling, redness, or edema. ENT: Nares patent. No nasal discharge, no septal abnormalities noted. Tympanic membranes are normal and external auditory canals are clear. Oropharynx with no redness, swelling, or masses, exudates, or evidence of obstruction, uvula midline. Mucous membranes moist. Neck: Trachea midline, no thyromegaly or masses palpated, and no cervical lymphadenopathy. Supple, full range of motion without nuchal rigidity, or vertebral point tenderness. No Meningismus. Chest/axilla: Normal chest wall appearance and motion. Nontender with no deformity. No lesions are appreciated. Cardiovascular: Regular rate and rhythm with a normal S1 and S2. No gallops, murmurs, or rubs. Normal PMI, no JVD. No pulse deficits. Respiratory: Lungs have equal breath sounds bilaterally, clear to auscultation and percussion. No rales, rhonchi or wheezes noted. No increased work of breathing, no retractions or nasal flaring. Abdomen/GI: Soft, non-tender, with normal bowel sounds. No distension or tympany. No guarding or rebound. No evidence of tenderness throughout. Back: No spinal tenderness. No costovertebral tenderness. Full range of motion. Skin: Warm, dry with normal turgor. Normal color with no rashes, no lesions, and no evidence of cellulitis. MS/ Extremity: Pulses equal, no cyanosis. Neurovascular intact. Full, normal range of motion. Neuro: Awake and alert, GCS 15, oriented to person, place, time, and situation. Cranial nerves II-XII grossly intact. Motor strength 5/5 in all extremities. Sensory grossly intact. Cerebellar exam normal. Normal gait. Psych: Awake, alert, with orientation to person, place and time. Behavior, mood, and affect are within normal limits. Vital Signs: 09:31 BP 130 / 74; Pulse 99; Resp 16; Temp 98.3; Pulse Ox 100% on R/A; Weight 95.25 kg; hb Height 5 ft. 5 in. (165.10 cm); Pain 0/10; 12:15 BP 132 / 46; Pulse 79; Resp 18; Temp 98.2; Pulse Ox 100% on R/A; Pain 0/10; mg2 13:14 BP 111 / 58; Pulse 77; Resp 18; Temp 98; Pulse Ox 100% on R/A; mg2 14:30 BP 123 / 68; Pulse 77; Resp 18; Temp 98.1; Pulse Ox 100% on R/A; Pain 0/10; mg2 15:12 BP 117 / 49; Pulse 88; Resp 18; Temp 98; Pulse Ox 100% on R/A; Pain 0/10; mg2 15:59 BP 114 / 56; Pulse 75; Resp 18; Temp 98; Pulse Ox 100% on R/A; Pain 0/10; mg2 09:31 Body Mass Index 34.95 (95.25 kg, 165.10 cm) hb MDM: 09:35 Patient medically screened. [facility] 10:22 Data reviewed: vital signs, nurses notes, lab test result(s), EKG, radiologic studies, tiki plain films. 03/31 09:52 Order name: Basic Metabolic Panel; Complete Time: 10:54 [facility] 03/31 09:52 Order name: CBC with Diff; Complete Time: 10:32 [facility] 03/31 09:52 Order name: LFT's; Complete Time: 10:54 [facility] 03/31 09:52 Order name: Magnesium; Complete Time: 10:54 [facility] 03/31 09:52 Order name: NT PRO-BNP; Complete Time: 10:54 [facility] 03/31 09:52 Order name: PT-INR; Complete Time: 10:32 [facility] 03/31 09:52 Order name: Troponin (emerg Dept Use Only); Complete Time: 10:54 [facility] 03/31 10:19 Order name: Lipase; Complete Time: 11:54 [facility] 03/31 10:19 Order name: D-Dimer; Complete Time: 11:20 [facility] 03/31 10:19 Order name: TSH; Complete Time: 11:54 [facility] 03/31 10:19 Order name: Type And Screen [facility] 03/31 10:19 Order name: CBC with Diff: redraw; Complete Time: 11:20 [facility] 03/31 10:19 Order name: Retic Count; Complete Time: 11:20 [facility] 03/31 10:19 Order name: Iron Level; Complete Time: 11:54 [facility] 03/31 09:52 Order name: XRAY Chest (1 view); Complete Time: 11:20 [facility] 03/31 10:19 Order name: Ferritin [facility] 03/31 10:19 Order name: TIBC; Complete Time: 11:54 [facility] 03/31 10:19 Order name: B12; Complete Time: 11:54 [facility] 03/31 10:19 Order name: Folic Acid,Serum (folate); Complete Time: 11:54 [facility] 03/31 10:55 Order name: CT Chest For PE Angio [facility] 03/31 10:56 Order name: US Extremity Venous W Compression Cristobal [facility] 03/31 11:21 Order name: Packed RBC Leukored [facility] 03/31 11:37 Order name: ABO/RH no charge; Complete Time: 11:54 [facility] 03/31 14:40 Order name: US [facility] 03/31 14:51 Order name: Urine Dipstick--Ancillary (enter results) 03/31 14:51 Order name: Urine --Ancillary (enter results) 03/31 09:52 Order name: EKG; Complete Time: 09:54 [facility] 03/31 09:52 Order name: Cardiac monitoring; Complete Time: 09:53 [facility] 03/31 09:52 Order name: EKG - Nurse/Tech; Complete Time: 10:05 [facility] 03/31 09:52 Order name: IV Saline Lock; Complete Time: 09:53 [facility] 03/31 09:52 Order name: Labs collected and sent; Complete Time: 09:53 [facility] 03/31 09:52 Order name: O2 Per Protocol; Complete Time: 09:53 [facility] 03/31 09:52 Order name: O2 Sat Monitoring; Complete Time: 09:54 [facility] 03/31 10:34 Order name: Transfuse; Complete Time: 12:45 [facility] 03/31 11:47 Order name: Misc. Order: transfusion slips placed on paper chart; Complete Time: 12:45 03/31 14:11 Order name: Diet Clear Liquid; Complete Time: 14:12 mg2 Administered Medications: 10:40 Drug: Pepcid 20 mg Route: IVP; Site: right antecubital; sg 12:45 Follow up: Response: No adverse reaction mg2 10:42 Drug: ProTONIX 40 mg Route: IVP; Site: right antecubital; sg 12:45 Follow up: Response: No adverse reaction mg2 12:10 Drug: Tylenol 650 mg Route: PO; mg2 14:53 Follow up: Response: No adverse reaction mg2 12:10 Drug: Benadryl 12.5 mg Route: IVP; Site: right antecubital; mg2 14:53 Follow up: Response: No adverse reaction mg2 16:26 Not Given (patient moved to ICU already before BT completion): Lasix 20 mg IVP once; mg2 post trasnfusion of 2 units PRBC Disposition: 03/31/19 10:36 Hospitalization ordered by Shayan Cody for Inpatient Admission. Preliminary diagnosis are Dizziness and giddiness, Anemia, unspecified, Weakness, Cholelithiasis. - Bed requested for Intensive Care Unit. - Status is Inpatient Admission. mg2 - Condition is Stable. - Problem is new. - Symptoms have improved. UTI on Admission? No Signatures: Dispatcher [employer] EDMS Pavan Bang [email or web address] Renate Chairez RN RN dw Gay, Steven, RN RN sg Anderson, Corey, MD MD cha Smirch, Shelby, RN RN Jacki Foss RN RN Zach Nguyen RN RN mg2 Corrections: (The following items were deleted from the chart) 12:59 10:36 Hospitalization Ordered by Shayan Cody MD for Inpatient Admission. Preliminary [facility] diagnosis is Dizziness and giddiness; Anemia, unspecified; Weakness. Bed requested for Telemetry/MedSurg (Inpatient). Status is Inpatient Admission. Condition is Stable. Problem is new. Symptoms have improved. UTI on Admission? No. tiki 14:49 12:59 03/31/2019 10:36 Hospitalization Ordered by Shayan Cody MD for Inpatient dw Admission. Preliminary diagnosis is Dizziness and giddiness; Anemia, unspecified; Weakness; Cholelithiasis. Bed requested for Telemetry/MedSurg (Inpatient). Status is Inpatient Admission. Condition is Stable. Problem is new. Symptoms have improved. UTI on Admission? No. tiki 15:00 14:49 03/31/2019 10:36 Hospitalization Ordered by Shayan Cody MD for Inpatient dw Admission. Preliminary diagnosis is Dizziness and giddiness; Anemia, unspecified; Weakness; Cholelithiasis. Bed requested for Telemetry/MedSurg (Inpatient). Status is Inpatient Admission. Condition is Stable. Problem is new. Symptoms have improved. UTI on Admission? No. dw 16:26 15:00 03/31/2019 10:36 Hospitalization Ordered by Shayan Cody MD for Inpatient mg2 Admission. Preliminary diagnosis is Dizziness and giddiness; Anemia, unspecified; Weakness; Cholelithiasis. Bed requested for Intensive Care Unit. Status is Inpatient Admission. Condition is Stable. Problem is new. Symptoms have improved. UTI on Admission? No. dw
[2019-03-31 10:47] LABS: Absolute Lymphocytes (CBC) 1.6 K/uL (0.7-4.9); Basophils % 0.7 % (0-1.3); MPV 7.5 fL (7.6-11.3); RBC Red Blood Cell Count 1.91 M/uL (3.86-4.86)
[2019-03-31 10:58] LABS: Hematocrit 16.7 % (36.0-45.0)
[2019-03-31 11:25] LABS: Ferritin 9.4 ng/mL (8-388); Folic Acid, (Folate) 18.5 ng/mL (3.1-17.5); Thyroid Stimulating Hormone 1.37 uIU/mL (0.360-3.740)
--- NOTE | 2019-03-31 11:30 | RAD REPORT ---
EXAM DESCRIPTION: CT - Chest For Pe Angio - 03/31/2019 11:13 am CLINICAL HISTORY: Chest pain COMPARISON: None. TECHNIQUE: Dynamically enhanced axial 3 mm thick images of the chest were obtained during administra tion of <100> mL Isovue 370 IV contrast. Coronal and oblique reconstruction images were generated and reviewed. Exam utilizes a protocol for optimal evaluation of pulmonary arterial tree. Maximum intensity projections 3D imaging was utilized All CT scans are performed using dose optimization technique as appropriate and may include automated exposure control or mA/KV adjustment according to patient size. FINDINGS: A pulmonary embolus is not seen. A thoracic aortic aneurysm is not noted. A pleural effusion is not seen. A pericardial effusion is not seen. A lung consolidation is not present. A gallstone is seen. IMPRESSION: Negative for a pulmonary embolism. Cholelithiasis
--- NOTE | 2019-03-31 11:45 | RAD REPORT ---
EXAM DESCRIPTION: US - Extrem Venous W Compress Cristobal - 03/31/2019 11:35 am CLINICAL HISTORY: Bilateral leg pain and swelling COMPARISON: None. TECHNIQUE: Real-time sonographic evaluation of the bilateral lower extremity common femoral, superfi cial femoral, popliteal and posterior tibial veins was performed. FINDINGS: Normal compressibility, flow augmentation, phasic flow and spontaneous flow are identified in the left and right lower extremity common femoral, superficial femoral, popliteal and posterior t ibial veins. No intraluminal filling defects seen. IMPRESSION: No DVT in either lower extremity.
[2019-03-31] MEDS ORDERED: DIPHENHYDRAMINE 50 MG/ML VIAL ONE (12:02)
[2019-03-31] MEDS ORDERED: ACETAMINOPHEN 325 MG TABLET ONE (12:02)
[2019-03-31 16:30] LABS: Urine Blood NEGATIVE (NEG); Urine Glucose NEGATIVE (NEG); Urine Protein NEGATIVE (NEG)
[2019-03-31] MEDS ORDERED: ONDANSETRON 4 MG/2 ML VIAL IV PRN (16:39)
[2019-03-31] MEDS ORDERED: ACETAMINOPHEN 500 MG TAB PO PRN (16:39)
[2019-03-31] MEDS ORDERED: NA CHLORIDE 0.9% 250 ML IV SCH (16:39)
[2019-03-31] MEDS ORDERED: FUROSEMIDE 20 MG/ 2ML VIAL IV ONE ×2 (16:54→20:52)
--- NOTE | 2019-03-31 17:35 | EKG ---
Test Date: 2019-03-31 Test Time: 10:00:38 Film Mounter: NATALIE MEASUREMENT RESULTS: Intervals: Rate: 82 NM: 192 QRSD: 86 QT: 390 QTc: 455 Carlton: P: 71 NM: 192 QRS: 13 T: 53 INTERPRETIVE STATEMENTS: Normal sinus rhythm ST abnormality, possible digitalis effect Abnormal ECG Compared to ECG 01/13/2019 07:12:11 ST (T wave) deviation now present Myocardial infarct finding no longer present Electronically Signed On 03-31-19 17:33:50 CDT by Carlos Hudson
[2019-03-31 19:23] LABS: Hematocrit 22.5 % (36.0-45.0)
[2019-03-31 19:36] VITALS: BMI 34.9
[2019-03-31] MEDS: NA CHLORIDE 0.9% 1,000 ML IV SCH (20:53)
[2019-03-31] MEDS: PANTOPRAZOLE 40 MG INJ IVP SCH (20:53)
--- NOTE | 2019-03-31 21:03 | HP ---
Date of Admission: 03/31/2019 Primary Care Physician: Dr. Dumont. Consultants: Dr. Larkin with GI. Chief Complaint: Dizziness and lightheadedness. History Of Present Illness: The patient is a 59-year-old female with past medical history of hyperte nsion, generalized osteoarthritis and knee replacement, who was in her usual state of health until ap proximately 1 week ago when the patient had generalized malaise and multiple episodes of diarrhea wit h loose stools which were black looking. The patient denies any hemoptysis or hematemesis. The marc ent is on blood thinners, takes baby aspirin a day, enteric-coated, however, she is also on NSAIDs ta kes 800 mg a day for her knee and she has had a replacement on one of her knees. Patient reports sub sequent nausea, dizziness, fatigue, feeling lightheaded and generalized weakness. Patient also had s ome blurry vision. Patient therefore came into the ER for further evaluation. Upon arrival, her wor kup revealed a hemoglobin of 5.5. Baseline hemoglobin is 13 from less than 3 months ago. Her D-dime r was also elevated as was her troponin at 0.26. CT angio chest was done, which ruled out PE did quang w cholelithiasis. Doppler venous study was negative for DVT. Two units of blood were ordered by the ER and the patient was referred for admission. Dr. Larkin with GI was also consulted. When seen in the ER, she was awake, alert, oriented x3, in some mild distress. Past Medical History: Hypertension, osteoarthritis of the knee. Past Surgical History: Knee replacement. Allergies: NO KNOWN DRUG ALLERGIES. Medications: The patient takes losartan and takes Aleve 800 mg daily and baby aspirin. Family History: Diabetes runs in the brother, sister, and grandmother as well as aunt. Social History: The patient denies any tobacco use, alcohol use, or illicit drug use. Patient is ma rried, works at the school. Review of Systems: Ten-point system reviewed, negative except as per HPI. Physical Examination: Vital Signs: Blood pressure 130/74, pulse 99, respirations 16, temperature 98.3, O2 of 100% on room air, BMI 34. General: Awake, alert, and oriented x3, in some mild distress. Ill-appearing female, lethargic. HEENT: Normocephalic, atraumatic. PERRLA. EOMI. Dry mucous membranes. Oropharynx is clear. Conj unctiva is anicteric. Normal dentition. Neck: Supple. No JVD. Trachea midline. CV: S1, S2. Sinus tachycardia. Peripheral pulses present. No murmurs. Respiratory: Moving air well bilaterally. No wheezing or stridor. No use of accessory muscles. Gastrointestinal: Abdomen is soft, nontender, nondistended. Positive bowel sounds. No guarding or rigidity. Extremities: No clubbing, cyanosis, or edema. No calf tenderness. Neuro: Cranial nerves 2 through 12 intact grossly. No focal neurological deficit. Speech is normal . Sensation is intact to light touch. No facial asymmetry. Skin: No rashes. Normal skin turgor. Patient does have some pallor. Laboratory Data: Sodium 142, potassium 3.5, chloride 108, CO2 of 28, BUN 16, creatinine 0.85, glucos e 101, calcium 8.2, magnesium 2.2. Iron 15, TIBC 347, transferrin 248, ferritin 9.4. Troponin 0.26. BNP 371. Albumin 3.3, lipase 85. INR 0.96. D-dimer 551. WBC 7.3, H and H of 5.5 and 16.7, plate lets 373, neutrophils 69%. CT angio chest negative for pulmonary embolism, does show cholelithiasis. Chest x-ray personally reviewed shows no acute cardiopulmonary process. Doppler sonogram on bilate ral lower extremities negative for DVT in either extremity. Assessment: A 59-year-old female with: 1.Acute blood loss anemia. Hemoglobin is 5.5. The patient received 2 units of PRBCs with 20 mg of Lasix in between. We will aim for hemoglobin greater than 8. The patient's recent hemoglobin was 13 . This is likely due to gastric ulcer. The patient is on aspirin and high dose of nonsteroidal anti -inflammatory medications due to her arthritis. The patient has been counseled. We will start on IV PPI. GI has been consulted. The patient may need scope if has recurrent bleeding. Patient is symp tomatic with tachycardia, dizziness, fatigue, weakness. 2.Generalized weakness secondary to above. 3.Elevated troponin level likely due to severe anemia. We will obtain EKG. Consult Cardiology. Ru le out ACS. 4.Gastrointestinal bleed. Patient likely had upper source of bleed, had several episodes of diarrhe a with black stool. Continue IV PPI. 5.Elevated D-dimer. CT angio chest is negative for PE. No DVT found on Doppler sonogram. 6.Essential hypertension. We will hold blood pressure medications for now. 7.Obesity, BMI greater than 30, counseled. 8.Generalized osteoarthritis. Patient counseled to avoid NSAIDs for now. We will continue with adan n control. 9.Deep venous thrombosis prophylaxis, SCDs. No chemical anticoagulation due to bleed and low hemogl obin. Plan: Admit the patient to ICU. Place as inpatient. Length of stay greater than 2 midnights. SHANICE Voice ID: [id number]
[2019-04-01] MEDS: NA CHLORIDE 0.9% 1,000 ML IV SCH ×2 (00:39→08:39)
[2019-04-01 04:28] LABS: Absolute Lymphocytes (CBC) 1.5 K/uL (0.7-4.9); Basophils % 0.9 % (0-1.3); Hematocrit 27.7 % (36.0-45.0); Lymphocytes % 25.6 % (15.3-44.8); MPV 7.6 fL (7.6-11.3); RBC Red Blood Cell Count 3.14 M/uL (3.86-4.86)
[2019-04-01 04:41] LABS: Potassium 3.7 mmol/L (3.5-5.1)
[2019-04-01] MEDS: PANTOPRAZOLE 40 MG INJ IVP SCH (08:45)
--- NOTE | 2019-04-01 11:10 | CON ---
Date of Consultation: 03/31/2019 Reason For Consultation: Elevated troponin. History Of Present Illness: Isabelle is a 59-year-old woman, has really no significant past cardiac hi story. She has a history of hypertension, for which she takes losartan and hydrochlorothiazide. Has had some arthritis issue, for which she has been taking Motrin for the last 6 months. She also take s aspirin. Came in with what sounds like a chronic GI bleed with a hemoglobin of 5.5. Never had any chest pain. She had some nausea, she had some diarrhea, and she had some dizziness. Denied PND, or thopnea, pedal edema, palpitations, or syncope. Her troponin was 0.26. Echocardiogram, which was do ne was normal. She had a D-dimer of 551. CT angiogram was normal. Venous Doppler was normal. Ches t x-ray was normal. EKG was normal. She had a BNP of 371. Allergies: NONE. Review of Systems: Negative. Social History: Negative. Family History: Negative. Medications: Listed earlier. Physical Examination: Reportedly normal. Diagnostic Data: As stated earlier. Impression And Plan: 1.Elevated troponin secondary to severe anemia. 2.Elevated D-dimer. BNP also is secondary to severe anemia. 3.Gastrointestinal bleed secondary to possible gastric or esophageal issues that may be related to h er nonsteroidal anti-inflammatory drugs. I do not recommend any cardiac workup at this point. [facility], I would like to state that in 12/2018, she had come in with atypical chest pain radiating to the jaw and the back that resolved, although it lasted about 2 hours. At that time, she had an echocardi ogram that was normal, but no stress test was done and I think that she would benefit from having a s tress test done as an outpatient after all this anemia issues are resolved. This was discussed with her and her . JULIA/IZABELA Voice ID: [id number] Report ID: [id number]
[2019-04-01] MEDS ORDERED: Ringers Lactate 1,000 ML IV ONE (14:09)
[2019-04-01] MEDS ORDERED: EPINEPHRINE/PF 1 MG/ML AMP ONE (14:13)
[2019-04-01] MEDS ORDERED: PROPOFOL 200 MG/20 ML VIAL IV ONE (14:21)
[2019-04-01 15:30] VITALS: O2SAT 100
[2019-04-01 16:47] VITALS: BP 137/67; TEMP 97.7
[2019-04-01 17:01] LABS: Hematocrit 29.2 % (36.0-45.0)
--- NOTE | 2019-04-02 02:10 | OP ---
Surgeon: Agustin Larkin MD Procedure To Be Performed: Esophagogastroduodenoscopy. Indication For Procedure: Upper GI bleed, melena, severe anemia. Plan For Anesthesia: Monitored anesthesia care. Complexity: Average. Technique: After obtaining informed consent from the patient and explaining risks and complications, which include, but are not limited to, bleeding, infection, perforation, and anesthesia complication , patient was placed in the left lateral position and sedation was given. From then on, the scope wa s advanced to the mouth and carefully guided up until the second part of the duodenum. After complet ion of examination, scope and equipment were withdrawn and procedure terminated in a safe manner. Findings: Esophagus: Small hiatal hernia seen in the distal esophagus. Also, there was evidence of grade A esophagitis. Stomach: Mild patchy erythema seen in the body and antrum. Biopsies were meliton en. Duodenum: In the bulb, there was a large cratered, but clean base ulcer seen. This was likely source of bleeding. Biopsies taken. The second part of the duodenum was normal. Complications: None. Tolerance To Anesthesia: Excellent. Postoperative Diagnoses: Large duodenal ulcer with clean base, gastritis, hiatal hernia, esophagitis . Biopsies taken. Plan: 1.Await pathology results. 2.Oral PPI twice a day. Avoid NSAIDs. Follow up in the GI Clinic in 1 to 2 weeks. We will need re peat EGD in 2 months. Also will need a screening colonoscopy as it has been a long time since the [facility] last had one done. From my point of view, patient can be discharged today after advancing diet . US/MODL Voice ID: [id number] Report ID: [id number]
--- NOTE | 2019-04-02 02:22 | DS ---
Date of Discharge: 04/01/2019 Consultants: Dr. Hudson with Cardiology and Dr. Larkin with GI. Procedure: On 04/01/2019, EGD with duodenal ulcer. Admitting Diagnoses: 1.Acute blood loss anemia. 2.Gastrointestinal bleed. 3.Generalized weakness. 4.Elevated troponin level. 5.Elevated D-dimer. 6.Essential hypertension. 7.Obesity. 8.Generalized osteoarthritis, on chronic NSAIDs. Discharge Diagnoses: 1.Acute blood loss anemia secondary to duodenal ulcer, status post 2 units of packed red blood cells and stable. 2.Acute gastrointestinal bleed secondary to duodenal ulcer status post esophagogastroduodenoscopy. 3.Elevated troponin level secondary to demand ischemia from severe anemia. Patient will need outpat ient stress test. 4.Generalized weakness, improved. 5.Dizziness, resolved. 6.Elevated D-dimer, thromboembolism ruled out. 7.Essential hypertension, stable. 8.Obesity, body mass index 34.9. Hospital Course: Patient is a 59-year-old female with past medical history of hypertension, osteoart hritis, who has been taking 800 mg of Aleve a day for almost a month on top of a baby aspirin, comes in with dizziness and lightheadedness. Patient had multiple episodes of black stools prior to hospit alization. Patient's hemoglobin was found to be 5.5. Her baseline hemoglobin is 13. Patient was tr ansfused 2 units of PRBCs. Her hemoglobin improved to 9.4. She was no longer tachycardic or tachypn eic. Her elevated D-dimer was worked up. CT angio was negative for PE. Doppler sonogram was negati ve for DVT. Patient did have elevated troponin level, which was likely due to demand ischemia from h er severe anemia and sudden drop in her hemoglobin. Patient was seen by Cardiology, Dr. Hudson. e had a recent echocardiogram as an outpatient, which was within normal limits. He recommended outpa tient stress test. Patient was seen by Dr. Larkin with GI, who performed EGD as mentioned above. The patient was found to have a duodenal ulcer. Patient was started on IV PPI b.i.d. from admission. Patient also had gastritis, hiatal hernia and esophagitis found on the EGD. Patient did well overa ll. Her vital signs remained stable. She was hemodynamically stable. Her dizziness and lightheaded ness resolved. Her hemoglobin remained stable post transfusion. She does not have any further acute bleeding. No further diarrhea. The patient was then cleared for discharge from both Cardiology and GI standpoint. Patient was able to tolerate her diet. Medications: As per medication reconciliation list. Patient was expressly told to completely stop a ll forms of NSAIDs, which include ibuprofen, Aleve, Advil, etc. as well as BC Powder. Patient to hol d aspirin until cleared by GI. Followup: Follow up with primary care physician in 2 to 3 days. Follow up with GI, Dr. Larkin in 2 weeks. Return to ER for worsening condition. Diet: Planned diet advanced as tolerated to heart healthy diet. Activity: As tolerated. Physical Examination: General: Awake, alert, oriented x3. Obese female. CV: S1, S2. Respiratory: Moving air well bilaterally. Abdomen: Soft, nontender, nondistended. Positive bowel sounds. Extremities: No clubbing, cyanosis, or edema. Neurologic: Nonfocal. Time Spent: Total time spent discharging the patient was 39 minutes. /IZABELA Voice ID: [id number] Report ID: [id number]
[2019-04-02] MEDS ORDERED: hydroCHLOROthiazide 12.5 MG CAP PO SCH (09:00)
[2019-04-02] MEDS ORDERED: LOSARTAN POTASSIUM 50 MG TABLET PO SCH (09:00)
[2019-04-02] MEDS ORDERED: ASPIRIN 81 MG CHEWABLE TABLET PO SCH (09:00)
== END 2019-04-01 18:26 | disposition home or self-care (01) | DRG 811 ==
LOC: ER 09:20 → ERHOLD 11:32 → 3RD-ICU 14:57 → 2ND 04-01 09:30
PROVIDERS: ADMIT Family Medicine; ATTEND Family Medicine
PROC: 30233N1 Transfusion of Nonautologous Red Blood Cells into Peripheral Vein, Percutaneous Approach (ICD-10-PCS; 2019-03-31)
PROC: 0DB68ZX Excision of Stomach, Via Natural or Artificial Opening Endoscopic, Diagnostic (ICD-10-PCS; 2019-04-01)
PROC: 0DB98ZX Excision of Duodenum, Via Natural or Artificial Opening Endoscopic, Diagnostic (ICD-10-PCS; principal; 2019-04-01 11:00)
DX: D62 Acute posthemorrhagic anemia (principal); K26.4 Chronic or unspecified duodenal ulcer with hemorrhage; I24.8 Other forms of acute ischemic heart disease; K44.9 Diaphragmatic hernia without obstruction or gangrene; K29.70 Gastritis, unspecified, without bleeding; K20.9 Esophagitis, unspecified; I10 Essential (primary) hypertension; E66.9 Obesity, unspecified; Z68.34 Body mass index [BMI] 34.0-34.9, adult; M15.9 Polyosteoarthritis, unspecified; Z96.659 Presence of unspecified artificial knee joint
CPT/HCPCS: 36415; 36430; 71045; 71275; 80048; 80061; 80076; 81003; 81025; 82607; 82728; 82746; 83540; 83690; 83735; 83880; 84443; 84466; 84484; 85014; 85018; 85025; 85044; 85379; 85610; 86850; 86900; 86901; 88305; 88312; 93005; 93970; 96374; 96375; 99285; C9113; J0171; J1940; J2704; J7030; P9016; Q9967

== ENCOUNTER 2020-09-29 23:06 | Emergency (ER) | payer BC, OTHER ==
--- OUTSIDE RECORDS SUMMARY | 2020-09-29 23:09 | XMS REPORT | Continuity of Care Document ---
:1960 Author Organization [facility] t Address [address] [place] [address] Care Team Providers Name Role Phone Unavailable Unavailable Unavailable Payers Payer Name Policy Type Policy Number Effective Date Expiration Date S ource Problems This patient has no known problems. Allergies, Adverse Reactions, Alerts This patient has no known allergies or adverse reactions. Medications Ordered Filled Start Stop Current Ordering Indication Dosage Frequency Signature Comments Components Source Medication Medication Date Date Medication? Clinician (SIG) Name Name Losartan Losartan 2018-07 Yes Mac [address] [facility] Potassium-H Potassium-H 1-25 [facility] Pantoprazol Pantoprazol Yes Mac [address] [facility] Sodium e Sodium 9-30 [facility] Aspirin Aspirin Yes Mac [address] [facility] Phentermine Phentermine Mac [address] [facility] HCl HCl 05-13 [facility] Procedures This patient has no known procedures. Encounters Start End Encounter Admission Attending Care Care Encounter Source Date/Time Date/Time Type Type Clinicians Facility Department ID 2020-09-27 2020-09-27 Outpatient [facility] [id number] [facility] 2020-09-20 2020-09-20 Outpatient [facility] [id number] [facility] 2020-08-30 2020-08-30 Outpatient [facility] [id number] [facility] 2020-04-08 2020-04-08 [facility] [id number] [facility] 10:20:00 10:20:00 [facility] [employer] [facility] l Medicine Outpati ent Clinics 2020-01-07 2020-01-07 [facility] [id number] [facility] 09:45:00 09:45:00 t [employer] [facility] Medicine l Medicine Outpati ent Clinics 2020-01-05 2020-01-05 [facility] [id number] [facility] 13:22:00 13:22:00 t [employer] - [facility] Medicine l Medicine Outpati ent Clinics 2019-12-07 2019-12-07 [facility] [id number] [facility] 10:00:00 10:00:00 t [employer] [facility] Medicine l Medicine Outpati ent Clinics 2019-11-09 2019-11-09 [facility] [id number] [facility] 13:15:00 13:15:00 t [employer] - [facility] Medicine l Medicine Outpati ent Clinics 2019-10-19 2019-10-19 [facility] [id number] [facility] 13:15:00 13:15:00 t [employer] - [facility] Medicine l Medicine Outpati ent Clinics 2019-06-22 2019-06-22 [facility] [id number] [facility] 10:00:00 10:00:00 t [employer] - [facility] Medicine l Medicine Outpati ent Clinics 2019-06-15 2019-06-15 [facility] [id number] [facility] 16:08:00 16:08:[address] [facility] - Drive [facility] Medicine Outpati ent Clinics 2019-06-12 2019-06-12 [facility] [id number] [facility] 09:15:00 09:15:[address] [facility] - [facility] Medicine Outpati ent Clinics 2019-05-29 2019-05-29 [facility] [id number] [facility] 17:09:00 17:09:[address] [facility] - [facility] Medicine Outpati ent Clinics 2019-04-27 2019-04-27 [facility] [id number] [facility] 13[facility]30:00 13:30:[address] [facility] - [facility] Medicine Outpati ent Clinics 2019-04-20 2019-04-20 [facility] [id number] [facility] 14:12:00 14:12:[address] [facility] - [facility] Medicine Outpati ent Clinics 2018-12-03 2018-12-03 [facility] [id number] [facility] 13:54:00 13:54:[address] [facility] - [address] [facility] Medicine Outpati ent Clinics 2018-12-02 2018-12-02 [facility] [id number] [facility] 15:46:00 15:46:[address] [facility] - [address] [facility] Medicine Outpati ent Clinics 2018-11-17 2018-11-17 [facility] [id number] [facility] 14:30:00 14:30:[address] [facility] - [address] [facility] Medicine Outpati ent Clinics 2017-12-09 2017-12-09 [facility] [id number] [facility] 14:15:00 14:15:[address] [facility] - [facility] Medicine Outpati ent Clinics Results This patient has no known results.
--- NOTE | 2020-09-30 00:42 | EDPHYS ---
Physician Documentation [facility] Name: Portia Walton Age: 60 yrs Sex: Female : 1960 Arrival Date: 09/29/2020 Time: 23:07 Bed 17 Private MD: ED Physician Mkii Iraheta HPI: 09/29 23:55 This 60 yrs old Female presents to ER via Ambulatory with complaints of Rash. cp 23:55 The patient's rash thought to be caused by an unknown cause. The rash is located on the cp chest, right arm and left arm. 23:55 Onset: The symptoms/episode began/occurred 3 week(s) ago, intermittent, returned today cp while at work and is worse. 23:55 The rash can be described as urticarial, itchy, burning. Associated signs and symptoms: cp Pertinent positives: burning sensation, itching, Pertinent negatives: difficulty breathing, fever, swelling of lips, swelling of throat, swelling of tongue, wheezing. Treatment given at home: Benadryl. Patient denies being exposed to chemicals at work, recent change of soaps and/or detergents, allergy to foods. Historical: - Allergies: 23:20 No Known Allergies; bb - Home Meds: 23:20 Hydrochlorothiazide Oral [Active]; losartan Oral [Active]; bb - PMHx: 23:20 Anemia; Hypertension; bb - PSHx: 23:20 Knee - Right; bb - Immunization history:: Adult Immunizations up to date. - Social history:: Smoking status: Patient denies any tobacco usage or history of. ROS: 09/30 00:00 Constitutional: Negative for body aches, chills, fever, poor PO intake. cp 00:00 Eyes: Negative for injury, pain, redness, and discharge. cp 00:00 ENT: Negative for ear pain, sore throat, difficulty swallowing, difficulty handling secretions. 00:00 Cardiovascular: Negative for chest pain, edema, palpitations. 00:00 Respiratory: Negative for cough, shortness of breath, wheezing. 00:00 Abdomen/GI: Negative for abdominal pain, nausea, vomiting, and diarrhea. 00:00 Skin: Positive for rash, of the chest, right arm and left arm. 00:00 All other systems are negative. Exam: 00:05 Constitutional: The patient appears in no acute distress, alert, awake, non-toxic, well cp developed, well nourished. 00:05 Head/Face: Normocephalic, atraumatic. cp 00:05 Eyes: Periorbital structures: appear normal, Conjunctiva: normal, no exudate, no injection, Lids and lashes: appear normal, bilaterally. 00:05 Cardiovascular: Rate: normal, Rhythm: regular. 00:05 Respiratory: the patient does not display signs of respiratory distress, Respirations: normal, no use of accessory muscles, no retractions, labored breathing, is not present, Breath sounds: are clear throughout, no decreased breath sounds, no stridor, no wheezing. 00:05 Skin: rash a moderate rash is noted, consistent with urticaria, on the chest, right upper arm and upper left arm. Vital Signs: 09/29 23:17 BP 158 / 91; Pulse 65; Resp 16 S; Temp 98.2(O); Pulse Ox 100% on R/A; Weight 79.38 kg bb (R); Height 5 ft. 4 in. (162.56 cm) (R); Pain 0/10; 09/30 01:00 BP 158 / 73; Pulse 66; Resp 18; Pulse Ox 99% on R/A; jb4 09/29 23:17 Body Mass Index 30.04 (79.38 kg, 162.56 cm) bb MDM: 09/29 23:39 Patient medically screened. [facility] 09/30 00:38 Data reviewed: vital signs, nurses notes. 00:38 Counseling: I had a detailed discussion with the patient and/or guardian regarding: the cp historical points, exam findings, and any diagnostic results supporting the discharge/admit diagnosis, the need for outpatient follow up, a family practitioner, to return to the emergency department if symptoms worsen or persist or if there are any questions or concerns that arise at home. 00:38 Differential diagnosis: allergic reaction, anaphylaxis, Buzz's Santhosh. ED course: cp VSS. Patient appears non-toxic with no signs of respiratory distress. Will discharge to home for continued monitoring. Administered Medications: 00:42 Drug: SOLU-Medrol 125 mg Route: IM; Site: left gluteus; jb4 01:09 Follow up: Response: No adverse reaction; Marked relief of symptoms [facility] 00:42 Drug: Pepcid 20 mg Route: PO; jb4 01:08 Follow up: Response: No adverse reaction jb4 00:42 Not Given (Pt has no ride home): Atarax 50 mg PO once; if patient has a ride home jb4 Disposition: 05:52 Co-signature as Attending Physician, Miki Iraheta MD I agree with the assessment and tiki plan of care. Disposition: 09/30/20 00:39 Discharged to Home. Impression: Urticaria, unspecified. - Condition is Stable. - Discharge Instructions: Hives. - Prescriptions for Prednisone 20 mg Oral Tablet - take 2 tablet by ORAL route once daily for 5 days then 1 tablet daily for 5 days; 15 tablet. Vistaril 25 mg Oral capsule - take 2 capsule by ORAL route At bedtime As needed; 30 capsule. Pepcid 20 mg Oral Tablet - take 1 tablet by ORAL route every 12 hours for 10 days; 20 tablet. - Medication Reconciliation Form, Thank You Letter, Antibiotic Education, Prescription Opioid Use form. - Follow up: Private Physician; When: 2 - 3 days; Reason: Recheck today's complaints. - Problem is an ongoing problem. - Symptoms have improved. Signatures: Miki Iraheta MD MD cha Ballard, Brenda, RN RN bb Miki Sunshine PA PA Eliel Chu, RN RN jb4 Corrections: (The following items were deleted from the chart) 01:09 00:39 09/30/2020 00:39 Discharged to Home. Impression: Urticaria, unspecified. jb4 Condition is Stable. Forms are Medication Reconciliation Form, Thank You Letter, Antibiotic Education, Prescription Opioid Use. Follow up: Private Physician; When: 2 - 3 days; Reason: Recheck today's complaints. Problem is an ongoing problem. Symptoms have improved. cp
--- NOTE | 2020-09-30 00:42 | ER ---
Nurse's Notes [facility] Name: Portia Walton Age: 60 yrs Sex: Female : 1960 Arrival Date: 09/29/2020 Time: 23:07 Bed 17 Private MD: Diagnosis: Urticaria, unspecified Presentation: 09/29 23:17 Chief complaint: Patient states: she has had an intermittent rash which started approx 3 weeks ago. She has treated it at home with benadryl but it keeps coming back and now is getting worse, the rash is itchy. Coronavirus screen: At this time, the client does not indicate any symptoms associated with coronavirus-19. Ebola Screen: No symptoms or risks identified at this time. Initial Sepsis Screen: Does the patient meet any 2 criteria? No. Patient's initial sepsis screen is negative. Does the patient have a suspected source of infection? No. Patient's initial sepsis screen is negative. Risk Assessment: Do you want to hurt yourself or someone else? Patient reports no desire to harm self or others. 23:17 Method Of Arrival: Ambulatory 23:17 Acuity: CORIN 4 23:17 Onset of symptoms was August 2020. Triage Assessment: 23:20 General: Appears in no apparent distress. uncomfortable, Behavior is calm, cooperative. bb Pain: Denies pain. Respiratory: Airway is patent Respiratory effort is even, unlabored, Respiratory pattern is regular. Derm: Rash noted that is raised, urticaria, on chest and upper arms. Historical: - Allergies: 23:20 No Known Allergies; bb - Home Meds: 23:20 Hydrochlorothiazide Oral [Active]; losartan Oral [Active]; bb - PMHx: 23:20 Anemia; Hypertension; bb - PSHx: 23:20 Knee - Right; bb - Immunization history:: Adult Immunizations up to date. - Social history:: Smoking status: Patient denies any tobacco usage or history of. Screenin:39 Abuse screen: Denies threats or abuse. Nutritional screening: No deficits noted. jb4 Tuberculosis screening: No symptoms or risk factors identified. Fall Risk None identified. Assessment: 23:39 General: Appears in no apparent distress. uncomfortable, Behavior is calm, cooperative, jb4 appropriate for age. Pain: Denies pain. Neuro: Level of Consciousness is awake, alert, obeys commands, Oriented to person, place, time, situation. Cardiovascular: Patient's skin is warm and dry. Respiratory: Airway is patent Respiratory effort is even, unlabored, Respiratory pattern is regular, symmetrical. GI: No signs and/or symptoms were reported involving the gastrointestinal system. : No signs and/or symptoms were reported regarding the genitourinary system. EENT: No signs and/or symptoms were reported regarding the EENT system. Derm: Skin is intact, Skin is pink, warm \T\ dry. Rash noted that is red, raised, urticaria, on chest, right arm, left arm, right leg and left leg. Musculoskeletal: Circulation, motion, and sensation intact. Range of motion: intact in all extremities. 09/30 00:46 Reassessment: Patient appears in no apparent distress at this time. Patient and/or jb4 family updated on plan of care and expected duration. Pain level reassessed. Patient is alert, oriented x 3, equal unlabored respirations, skin warm/dry/pink. Vital Signs: 09/29 23:17 BP 158 / 91; Pulse 65; Resp 16 S; Temp 98.2(O); Pulse Ox 100% on R/A; Weight 79.38 kg bb (R); Height 5 ft. 4 in. (162.56 cm) (R); Pain 0/10; 09/30 01:00 BP 158 / 73; Pulse 66; Resp 18; Pulse Ox 99% on R/A; jb4 09/29 23:17 Body Mass Index 30.04 (79.38 kg, 162.56 cm) bb ED Course: 09/29 23:07 Patient arrived in ED. cf2 23:19 Triage completed. bb 23:20 Arm band placed on Patient placed in an exam room, on a stretcher, on pulse oximetry. bb 23:38 Miki Sunshine PA is PHCP. cp 23:38 Miki Iraheta MD is Attending Physician. cp 23:39 Eliel Drummond, SIMRAN is Primary Nurse. jb4 23:39 Patient has correct armband on for positive identification. Bed in low position. Call jb4 light in reach. Side rails up X 1. Pulse ox on. NIBP on. 09/30 01:00 No provider procedures requiring assistance completed. Patient did not have IV access jb4 during this emergency room visit. Administered Medications: 00:42 Drug: SOLU-Medrol 125 mg Route: IM; Site: left gluteus; jb4 01:09 Follow up: Response: No adverse reaction; Marked relief of symptoms jb4 00:42 Drug: Pepcid 20 mg Route: PO; jb4 01:08 Follow up: Response: No adverse reaction jb4 00:42 Not Given (Pt has no ride home): Atarax 50 mg PO once; if patient has a ride home jb4 Outcome: 00:39 Discharge ordered by . saran 01:08 Discharged to home ambulatory. jb4 01:08 Condition: stable 01:08 Discharge instructions given to patient, Instructed on discharge instructions, follow up and referral plans. medication usage, Demonstrated understanding of instructions, follow-up care, medications, Prescriptions given X 3. 01:09 Patient left the ED. jb4 Signatures: Kelsi Ivan RN RN Miki Hadley PA PA cp Bryson, James, RN RN jb4 Indu Goode cf2 Corrections: (The following items were deleted from the chart) 03 23:19 23:17 Onset of symptoms was September 29, 2020 eh stauffer
[2020-09-30] MEDS ORDERED: hydrOXYzine HCL 25 MG TAB ONE (00:50)
[2020-09-30] MEDS ORDERED: METHYLPREDNISOLONE 125 MG INJ ONE (00:50)
[2020-09-30] MEDS ORDERED: FAMOTIDINE 20 MG TAB ONE (00:51)
[2020-09-30 01:32] VITALS: BP 158/91; TEMP 98.2; O2SAT 100
== END 2020-09-30 01:09 | disposition home or self-care (01) ==
LOC: ER 23:06
DX: L50.9 Urticaria, unspecified (principal); I10 Essential (primary) hypertension
CPT/HCPCS: 96372; 99283; J2930